=== PATIENT | male | born 1995 | race Hispanic/Latino ===

== ENCOUNTER 2017-11-26 01:46 | Emergency (ER) | payer BC ==
[2017-11-26] MEDS ORDERED: Adacel (T-DAP) 0.5 ML VIAL ONE (02:52)
== END 2017-11-26 03:20 | disposition home or self-care (01) ==
LOC: ERS 01:46
DX: S91.201A Unspecified open wound of right great toe with damage to nail, initial encounter (principal); W22.8XXA Striking against or struck by other objects, initial encounter
CPT/HCPCS: 90471; 90715

== ENCOUNTER 2018-02-24 23:17 | Emergency (ER) | payer OTHER, BC ==
[2018-02-24] MEDS ORDERED: Ibuprofen 800 MG TAB ONE (23:31)
--- NOTE | 2018-02-24 23:50 | RAD ---
THREE VIEWS OF THE LEFT ANKLE: 02/24/18 HISTORY: Left ankle injury. A bar fall on patient's lower extremity today at work. Patient has swelling, pain and abrasion to left lower extremity. FINDINGS: The ankle mortise is congruent. There is no fracture or dislocation seen. There is prominent subcutan eous soft tissue swelling seen at the medial aspect of the left ankle. IMPRESSION: Subcutaneous soft tissue swelling left ankle without evidence of an acute osseous abnormality. POS: [facility]ICE
== END 2018-02-24 23:30 | disposition home or self-care (01) ==
LOC: ERS 23:17
DX: S90.02XA Contusion of left ankle, initial encounter (principal); W20.8XXA Other cause of strike by thrown, projected or falling object, initial encounter

== ENCOUNTER 2019-06-01 23:46 | Emergency (ER) | payer BC, OTHER ==
[2019-06-02] MEDS ORDERED: Dexamethasone 4 mg/ml Vial ONE (02:13)
--- NOTE | 2019-06-02 10:25 | RAD ---
Chest one view HISTORY: Cough. COMPARISON: 12/02/2015. FINDINGS: Cardiac silhouette is magnified by projection. Pulmonary vasculature is unremarkable. Media stinum is midline. No lobar consolidation or evidence of pneumothorax. IMPRESSION: No active cardiopulmonary abnormalities are demonstrated.
== END 2019-06-02 02:37 | disposition home or self-care (01) ==
LOC: ERS 23:46
DX: J06.9 Acute upper respiratory infection, unspecified (principal); F17.210 Nicotine dependence, cigarettes, uncomplicated; Z71.6 Tobacco abuse counseling
CPT/HCPCS: 71045; 87081; 87430; 96372; 99406; J1100

== ENCOUNTER 2021-05-20 18:19 | Emergency (ER) | payer BC, SELFPAY ==
[2021-05-20] MEDS ORDERED: Ondansetron ODT 4 MG TAB ONE (20:45)
[2021-05-21 01:01] LABS: SARS-CoV-2 PCR by NAA Not Detected (NotDetected)
== END 2021-05-20 21:08 | disposition home or self-care (01) ==
LOC: ERS 18:19
DX: B34.9 Viral infection, unspecified (principal); Z20.822 Contact with and (suspected) exposure to COVID-19
CPT/HCPCS: 87804; 99284; Q0162; U0003; U0005

== ENCOUNTER 2022-02-18 00:56 | Emergency (ER) | payer OTHER, SELFPAY ==
[2022-02-18] MEDS ORDERED: Albuterol 200 PUFF (6.7GM INHALER) ONE (01:30)
[2022-02-18] MEDS ORDERED: Ketorolac Tromethamine 30 MG/ML VIAL ONE (01:41)
[2022-02-18 02:24] LABS: SARS-CoV-2 NAA Rapid Test Not Detected (NotDetected)
== END 2022-02-18 03:15 | disposition home or self-care (01) ==
LOC: ERS 00:56
DX: J18.9 Pneumonia, unspecified organism (principal); Z20.822 Contact with and (suspected) exposure to COVID-19
CPT/HCPCS: 71045; 96372; J1885

== ENCOUNTER 2022-03-13 23:52 | Emergency (ER) | payer OTHER ==
[2022-03-14] MEDS ORDERED: Ketorolac Tromethamine 30 MG/ML VIAL ONE (00:03)
[2022-03-14] MEDS ORDERED: Acetaminophen 500 MG TAB ONE (00:03)
[2022-03-14 01:02] LABS: SARS-CoV-2 NAA Rapid Test Not Detected (NotDetected)
== END 2022-03-14 01:52 | disposition home or self-care (01) ==
LOC: ERS 23:52
DX: J18.9 Pneumonia, unspecified organism (principal); R50.9 Fever, unspecified; Z20.822 Contact with and (suspected) exposure to COVID-19
CPT/HCPCS: 71046; 96372; J1885